=== PATIENT | female | born 1990 | race Caucasian/White ===

== ENCOUNTER 2020-11-04 23:45 | Emergency (ER) | payer MEDICAID ==
[~2020-11-04] VITALS: Ht 154.9 cm; Wt 62.1 kg
[2020-11-04 23:55] VITALS: BP 127/45
--- NOTE | 2020-11-05 | NUR ---
PATIENT TAKEN TO BED 10 VIA W/C.
--- NOTE | 2020-11-05 00:08 | NUR ---
PER PATIENT TOOK UNKNOWN AMOUNT OF ATARAX 25MG TO HELP WITH ANXIETY. PATIENT REPORTS THAT SHE FELT LIKE SHE NEEDED TO TAKE MORE. PATIENT REPORTS THAT THERE WERE ABOUT 90 TABLETS IN THE CONTAINER AND THINKS SHE TOOK 50TABS AT AROUND 2240 TODAY. PER PATIENT CALLED POISON CONTROL AND REFERED TO ER. PATIENT STATES FEELS DROWSY, DIZZINESS, AND SHAKEY. SLIGHTLY TACHYCARDIC IN THE 110s. AAOX4. MEDHX: LUPUS NKA
--- NOTE | 2020-11-05 00:10 | NUR ---
Patient being evaluated by physician at bedside.
--- NOTE | 2020-11-05 00:10 | NUR ---
ERMD AT BEDSIDE EXAMINATION
--- NOTE | 2020-11-05 00:21 | NUR ---
CALLED POISON CONTROL IN REGARDS OF PATIENT INGESTING UNKNOWN DOSE OF HYDROXIZYNE HCL 25MG. 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 ALSO, CHECKING THE BLOOD OF TYLENOL, ASPIRIN, AND THE BMP. PLACE PATIENT ON SEIZURE PRECAUTIONS. DO AN EKG ON THE PATIENT: IF THERE IS A QRS WIDENING THAT IS GREATER THAN 120 GIVE BICARB BOLUS. IF THERE IS A QTC PROLONGATION THAT IS GREATER THAN 500 GIVE 1-2GRAMS OF MAGNESIUM.
[2020-11-05 00:26] LABS: BASOPHILS % (AUTO) 0.2 % (0.0-2.0); EOSINOPHILS % (AUTO) 0.6 % (0.0-4.0); HEMATOCRIT 37.9 % (36-48); HEMOGLOBIN 12.1 g/dL (12.0-16.0); LYMPHOCYTES # (AUTO) 2.7 K/uL (2.5-16.5); LYMPHOCYTES % (AUTO) 48.6 % (20.5-51.1); MEAN CORPUSCULAR HEMOGLOBIN 27 pg (27-31); MEAN CORPUSCULAR HGB CONC 32 g/dL (33-37); MEAN CORPUSCULAR VOLUME 82.9 fL (80-94); MONOCYTES # (AUTO) 0.3 K/uL (0.8-1.0); MONOCYTES % (AUTO) 5.7 % (1.7-9.3); NEUTROPHILS # (AUTO) 2.4 K/uL (1.8-7.7); NEUTROPHILS % (AUTO) 44.9 % (42.2-75.2); PLATELET COUNT (AUTO) 257 K/uL (140-450); RED BLOOD CELL COUNT(AUTO) 4.57 MIL/uL (4.20-5.40); RED CELL DISTRIBUTION WIDTH 16.9 % (11.6-13.7); WHITE BLOOD COUNT (AUTO) 5.5 K/uL (4.8-10.8)
--- NOTE | 2020-11-05 00:42 | NUR ---
EKG PERFORMED AT BEDSIDE. EKG READS SINUS RHYTHM @ 99
[2020-11-05 00:50] LABS: ANION GAP 14.3 (8-16); ASPARTATE AMINOTRANSFERASE 21 U/L (15-37); CARBON DIOXIDE 24.8 mmol/L (21-32); CHLORIDE 106 mmol/L (98-107); CREATININE 0.8 mg/dL (0.6-1.3); GFR ARICAN-AMERICAN 108 mL/min (>90); GLUCOSE 100 mg/dL (74-106); POTASSIUM 3.1 mmol/L (3.5-5.1); SODIUM SERUM 142 mmol/L (136-145); TOTAL BILIRUBIN 0.5 mg/dL (0.0-1.0); UREA NITROGEN, BLOOD 16 mg/dL (7-18)
[2020-11-05 00:55] LABS: ACETAMINOPHEN < 0.5 ug/ml (10-30); SALICYLATE < 2.8 mg/dL (2.8-20.0)
--- NOTE | 2020-11-05 01:16 | NUR ---
CALLED POSION CONTROL BACK ABOUT TIME FRAM THE PATIENT NEEDS TO BE OBSERVED. POISON CONTROL REPORTS A 6HR OBSERVATION THEN GO FROM THERE UNTIL PATIENT IS BACK AT BASELINE.
[2020-11-05] MEDS ORDERED: NACL 0.9% 1,000 ML IV ONE (02:05)
[2020-11-05] MEDS ORDERED: LORazepam 2 MG/ML VIAL IVP ONE ×2 (02:05→02:10)
--- NOTE | 2020-11-05 02:30 | NUR ---
EKG PERFORMED AT BEDSIDE. EKG READS SINUS RHYTHM @ 84
[2020-11-05] MEDS ORDERED: MAG SULF 2000 MG/WATER PREMIX 50 ML IV ONE (02:50)
--- NOTE | 2020-11-05 03:00 | NUR ---
Patient appears to be resting comfortably in bed. Vital Signs within normal limits. Respirations even and unlabored. Safety measures in place. Will continue to monitor patient.
--- NOTE | 2020-11-05 04:25 | NUR ---
Patient appears to be resting comfortably in bed. Vital Signs within normal limits. Respirations even and unlabored. Safety measures in place. Will continue to monitor patient.
--- NOTE | 2020-11-05 04:47 | NUR ---
patient ambulated to the bathroom for urine colleciton
[2020-11-05 05:12] LABS: APPEARANCE,URINE CLEAR (CLEAR); BILIRUBIN,URINE NEGATIVE (NEGATIVE); BLOOD, URINE NEGATIVE (NEGATIVE); COLOR,URINE YELLOW (YELLOW); LEUKOCYTE ESTERASE ,URINE NEGATIVE (NEGATIVE); NITRITE, URINE POSITIVE (NEGATIVE); UGLUCOSE NEGATIVE (NEGATIVE)
[2020-11-05 05:23] LABS: RBC,URINE 0-5 /HPF (0-5); WBC,URINE 0-5 /HPF (0-5)
[2020-11-05 05:27] LABS: BARBITURATE, URINE NEGATIVE ng/ml (NEG <=200); BENZODIAZEPINE, URINE POSITIVE ng/mL (NEG <=200); CANNABINOID, URINE NEGATIVE ng/mL (NEG <=50); COCAINE, URINE NEGATIVE ng/mL (NEG <=300); OPIATE, URINE NEGATIVE ng/mL (NEG <=2000); PHENCYCLIDINE SCREEN,URINE NEGATIVE ng/mL (NEG <=25)
--- NOTE | 2020-11-05 05:59 | NUR ---
PER INITIATED TELEPSYCH REQUEST CONNECT ID [id number]
--- NOTE | 2020-11-05 06:00 | NUR ---
SWABS COLLECTED. SENT TO LAB, RECEIVED BY BRAVO, LAB
--- NOTE | 2020-11-05 07:16 | NUR ---
REPORT RECEIVED FROM YOMI RN FOR CONTINUITY OF CARE
--- NOTE | 2020-11-05 07:16 | NUR ---
Pt report given to PAULINO Ramos. Transfer of care at this time.
--- NOTE | 2020-11-05 07:56 | NUR ---
PT ON TELEPSYCH AT THIS TIME
[2020-11-05] MEDS ORDERED: ONDANSETRON 4 MG ODT PO ONE (08:20)
[2020-11-05 08:30] VITALS: BP 115/81
[2020-11-08] MEDS ORDERED: CIPR500T4 PO (14:52)
== END 2020-11-05 08:30 | disposition home or self-care (01) ==
LOC: MED 23:45
DX: T43.591A Poisoning by other antipsychotics and neuroleptics, accidental (unintentional), initial encounter (principal); Z20.822 Contact with and (suspected) exposure to COVID-19; I45.81 Long QT syndrome; F41.9 Anxiety disorder, unspecified; Y92.89 Other specified places as the place of occurrence of the external cause
CPT/HCPCS: 36415; 80053; 80305; 81001; 81025; 85025; 87086; 87426; 93005; 96361; 96365; 96366; 96375; 99291; G0480; G0482; J2060; J3475; J7030; Q0162; U0003

== ENCOUNTER 2021-04-22 03:28 | Emergency (ER) | payer MEDICAID ==
[~2021-04-22] VITALS: Ht 152.4 cm; Wt 63.5 kg
[~2021-04-22 03:28] MED LIST: CIPR500T4 PO
--- NOTE | 2021-04-22 03:30 | NUR ---
30 YO F BIB SELF WITH C/C OF THOUGHTS OF HARMING SELF AND FAMILY. PT STATES SHE HAS DREAMS/ THOUGHTS OF HARMING FAMILY AND SELF. PT DENIES WANTING TO HARM ANYONE BUT THE THOUGHTS ARE THERE. DENIES WANTING TO COMIT SUICIDE. PT WAS DISCHARGED FROM [facility] SAME REASON. WAS PRESCIBED LEXAPRO YESTERDAY, IT WAS FIRST TIME SHE TOOK IT AND FELT BURNING INSIDE AND SHAKINESS. TESTED POSITIVE FOR COVID X1DAY. HX:ANXIETY, MAJOR DEPRESSION DISORDER RX:HYDROX, LEXAPRO NKA
[2021-04-22 03:32] VITALS: BP 130/72
--- NOTE | 2021-04-22 03:32 | NUR ---
OK WITH PT STAYING IN LOBBY.
[2021-04-22] MEDS ORDERED: LORazepam 1 MG TAB PO ONE (04:15)
--- NOTE | 2021-04-22 05:00 | NUR ---
PT IS SITTING UP IN CHAIR TALKING TO AND CHILDREN ON CELL PHONE.
[2021-04-22 05:01] LABS: APPEARANCE,URINE CLEAR (CLEAR); BILIRUBIN,URINE 1+ (NEGATIVE); BLOOD, URINE 2+ (NEGATIVE); COLOR,URINE YELLOW (YELLOW); LEUKOCYTE ESTERASE ,URINE NEGATIVE (NEGATIVE); NITRITE, URINE POSITIVE (NEGATIVE); UGLUCOSE NEGATIVE (NEGATIVE)
[2021-04-22 05:13] LABS: RBC,URINE 0-5 /HPF (0-5); WBC,URINE 0-5 /HPF (0-5)
--- NOTE | 2021-04-22 06:05 | NUR ---
PT STATES THE TIGHTNESS AND ANXIETY FEELING FINALLY WENT AWAY.
[2021-04-22 06:32] LABS: ANION GAP 18.8 (8-16); CARBON DIOXIDE 23.3 mmol/L (21-32); CHLORIDE 106 mmol/L (98-107); CREATININE 0.6 mg/dL (0.6-1.3); GFR ARICAN-AMERICAN 151 mL/min (>90); GLUCOSE 114 mg/dL (74-106); POTASSIUM 4.1 mmol/L (3.5-5.1); SODIUM SERUM 144 mmol/L (136-145); UREA NITROGEN, BLOOD 10 mg/dL (7-18)
[2021-04-22 06:34] LABS: BASOPHILS % (AUTO) 0.1 % (0.0-2.0); HEMATOCRIT 38.3 % (36-48); HEMOGLOBIN 12.6 g/dL (12.0-16.0); LYMPHOCYTES % (AUTO) 21.3 % (20.5-51.1); MEAN CORPUSCULAR HEMOGLOBIN 29 pg (27-31); MEAN CORPUSCULAR HGB CONC 33 g/dL (33-37); MEAN CORPUSCULAR VOLUME 87.3 fL (80-94); MONOCYTES # (AUTO) 0.2 K/uL (0.8-1.0); MONOCYTES % (AUTO) 3.8 % (1.7-9.3); NEUTROPHILS # (AUTO) 3.4 K/uL (1.8-7.7); NEUTROPHILS % (AUTO) 74.8 % (42.2-75.2); PLATELET COUNT (AUTO) 252 K/uL (140-450); RED BLOOD CELL COUNT(AUTO) 4.38 MIL/uL (4.20-5.40); WHITE BLOOD COUNT (AUTO) 4.5 K/uL (4.8-10.8)
[2021-04-22 06:52] LABS: ALBUMIN 3.3 g/dL (3.4-5.0); ASPARTATE AMINOTRANSFERASE 18 U/L (15-37); TOTAL BILIRUBIN 0.4 mg/dL (0.0-1.0)
--- NOTE | 2021-04-22 06:55 | NUR ---
STATES IT'S OK FOR PT TO SIT IN LOBBY.
[2021-04-22 07:02] LABS: ACETAMINOPHEN < 0.5 ug/ml (10-30); SALICYLATE < 2.8 mg/dL (2.8-20.0)
[2021-04-22] MEDS ORDERED: NITROFURANTOIN 100 MG CAP PO SCH (08:00)
--- NOTE | 2021-04-22 10:00 | NUR ---
PT MEDICALLY CLEARED BY DR CONTRERAS
[2021-04-22] MEDS ORDERED: ATA25 PO (10:32)
[2021-04-22] MEDS ORDERED: NITR100C7 PO (10:34)
[2021-04-22 10:51] VITALS: BP 119/79
--- NOTE | 2021-04-22 10:51 | NUR ---
Patient discharged with v/s stable. Written and verbal after care instructions ABOUT COVID 19 AND PSYCHOSIS given and explained. Patient alert, oriented and verbalized understanding of instructions. Ambulatory with steady gait. All questions addressed prior to discharge. ID band removed. Patient advised to follow up with PMD. Rx of ATARAX HCL AND MACROBID given. Patient educated on indication of medication including possible reaction and side effects. Opportunity to ask questions provided and answered.
[2021-04-22 11:07] LABS: BARBITURATE, URINE NEGATIVE ng/ml (NEG <=200); BENZODIAZEPINE, URINE NEGATIVE ng/mL (NEG <=200); CANNABINOID, URINE NEGATIVE ng/mL (NEG <=50); COCAINE, URINE NEGATIVE ng/mL (NEG <=300); OPIATE, URINE NEGATIVE ng/mL (NEG <=2000); PHENCYCLIDINE SCREEN,URINE NEGATIVE ng/mL (NEG <=25)
== END 2021-04-22 10:51 | disposition home or self-care (01) ==
LOC: MED 03:28
DX: U07.1 COVID-19 (principal); R44.1 Visual hallucinations; R44.0 Auditory hallucinations; R50.9 Fever, unspecified; R00.0 Tachycardia, unspecified; Z79.2 Long term (current) use of antibiotics
CPT/HCPCS: 36415; 71045; 80053; 80305; 81001; 84484; 84702; 85025; 87426; 93005; 99285; G0480; G0482; U0003; 87086

== ENCOUNTER 2021-05-22 00:54 | Emergency (ER) | payer MEDICAID ==
[~2021-05-22] VITALS: Ht 152.4 cm; Wt 68.0 kg
[~2021-05-22 00:54] MED LIST changes: -CIPR500T4 PO; +NITR100C7 PO
[2021-05-22 01:01] VITALS: BP 135/77
--- NOTE | 2021-05-22 01:01 | NUR ---
TO BED AMBULATORY
[2021-05-22] MEDS ORDERED: diphenhydrAMINE 50 MG CAP PO ONE (01:30)
[2021-05-22] MEDS ORDERED: LORazepam 1 MG TAB PO ONE (01:30)
--- NOTE | 2021-05-22 01:30 | NUR ---
RECEIVED PT IN BED 8 WITH C/O PALPITATIONS AND ANXIETY. PT STATES HISTORY OF ANXIETY.
[2021-05-22] MEDS ORDERED: HYDR-636 PO (01:32)
--- NOTE | 2021-05-22 02:15 | NUR ---
PT WALKED OUT OF ER. DID NOT WAIT FOR DISCHARGE INSTRUCTIONS OR RX.
--- NOTE | 2021-05-22 02:29 | NUR ---
PT WALKED BACK IN ER. ACI GIVEN WITH UNDERSTANDING EXPRESSED
== END 2021-05-22 02:29 | disposition home or self-care (01) ==
LOC: MED 00:54
DX: F41.0 Panic disorder [episodic paroxysmal anxiety] (principal); F32.9 Major depressive disorder, single episode, unspecified; F98.9 Unspecified behavioral and emotional disorders with onset usually occurring in childhood and adolescence; Z79.899 Other long term (current) drug therapy; Z79.2 Long term (current) use of antibiotics
CPT/HCPCS: 99283; Q0163

== ENCOUNTER 2024-01-14 09:41 | Emergency (ER) | payer MEDICAID ==
[~2024-01-14] VITALS: Ht 152.4 cm; Wt 87.5 kg
[~2024-01-14 09:41] MED LIST changes: +HYDR-636 PO
[2024-01-14 09:49] VITALS: BP 123/73; PULSE 96; RESP 16; TEMP 98.8; O2SAT 97
[2024-01-14 10:09] VITALS: O2SAT 97
[2024-01-14 10:57] LABS: APPEARANCE,URINE CLEAR (CLEAR); BILIRUBIN,URINE NEGATIVE (NEGATIVE); BLOOD, URINE NEGATIVE (NEGATIVE); COLOR,URINE YELLOW (YELLOW); LEUKOCYTE ESTERASE ,URINE NEGATIVE (NEGATIVE); NITRITE, URINE POSITIVE (NEGATIVE); PROTEIN,URINE NEGATIVE (NEGATIVE); UGLUCOSE NEGATIVE (NEGATIVE); UROBILINOGEN,URINE 0.2 EU/dL (0.2 - 1)
[2024-01-14] MEDS: KETOROLAC 60 MG/2 ML VIAL IM ONE (10:58)
[2024-01-14 11:12] LABS: BACTERIA,URINE 2+ /HPF (None Seen); MUCUS,URINE 1+ /LPF (None Seen); RBC,URINE 0-5 /HPF (0-5); WBC,URINE 0-5 /HPF (0-5)
[2024-01-14] MEDS ORDERED: IBUP-2213 PO (11:55)
== END 2024-01-14 12:26 | disposition home or self-care (01) ==
LOC: MED 09:41
DX: M54.50 Low back pain, unspecified (principal); R03.0 Elevated blood-pressure reading, without diagnosis of hypertension; Z90.49 Acquired absence of other specified parts of digestive tract; Z98.51 Tubal ligation status; Z79.899 Other long term (current) drug therapy
CPT/HCPCS: 81001; 81025; 87086; 87186; 96372; 99283; J1885